=== PATIENT | male | born 1975 | race African-American/Black ===

== ENCOUNTER 2017-03-17 10:14 | Inpatient (IN) | payer OTHER ==
[2017-03-17 10:31] VITALS: BMI 32.1
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
[2017-03-17] MEDS ORDERED: IBUPROFEN 400 MG TABLET (FP) PO PRN (10:44)
[2017-03-17] MEDS ORDERED: LOPERAMIDE HCL 2 MG CAPSULE PO PRN (10:44)
[2017-03-17] MEDS ORDERED: P-EPHED 60MG/TRIPROLIDI 2.5MG TABLET PO PRN (10:44)
[2017-03-17] MEDS ORDERED: MAG HYDROX/AL HYDROX/SIMETH 30 ML UNIT-DOSE CUP PO PRN (10:44)
[2017-03-17] MEDS ORDERED: MAGNESIUM HYDROX 2400MG/30ML ORAL SUSPENSION 30 ML CUP PO PRN (10:44)
[2017-03-17] MEDS ORDERED: guaiFENesin/D-METHORPHAN HB 10 ML UNIT-DOSE CUPS PO PRN (10:44)
[2017-03-17] MEDS ORDERED: chlordiazePOXIDE HCL 25 MG CAPSULE PO PRN (10:44)
[2017-03-17] MEDS ORDERED: hydrOXYzine PAMOATE 50 MG CAPSULE (FP) PO PRN (10:44)
[2017-03-17] MEDS ORDERED: MAGNESIUM CITRATE 300 ML BOTTLE PO PRN (10:44)
[2017-03-17] MEDS ORDERED: MENTHOL/PHENOL 1 EACH UD MM PRN (10:44)
[2017-03-17] MEDS ORDERED: ACETAMINOPHEN 325 MG TABLET (FP) PO PRN (10:44)
[2017-03-17] MEDS ORDERED: chlordiazePOXIDE HCL 25 MG CAPSULE PO ONE (12:45)
[2017-03-17 17:17] LABS: URINE APPEARANCE CLEAR; URINE BILIRUBIN NEGATIVE (NEGATIVE); URINE BLOOD NEGATIVE (NEGATIVE); URINE COLOR LTYELLOW; URINE GLUCOSE (UA) NEGATIVE (NEGATIVE); URINE KETONE NEGATIVE (NEGATIVE); URINE LEUK ESTERASE NEGATIVE (NEGATIVE); URINE NITRITE NEGATIVE (NEGATIVE); URINE PROTEIN NEGATIVE (NEGATIVE); URINE UROBILINOGEN NEGATIVE mg/dL (0.2-1.0)
[2017-03-17] MEDS: chlordiazePOXIDE HCL 25 MG CAPSULE PO SCH ×2 (17:48→22:07)
[2017-03-17] MEDS ORDERED: diphenhydrAMINE HCL 50 MG CAPSULE PO PRN (22:00)
[2017-03-17] MEDS: THIAMINE HCL 100 MG TABLET (FP) PO SCH (22:06)
[2017-03-18] MEDS: chlordiazePOXIDE HCL 25 MG CAPSULE PO SCH ×4 (06:04→22:03)
[2017-03-18] MEDS: NICOTINE POLACRILEX 4 MG GUM BUC PRN ×2 (06:05→17:30)
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
--- NOTE | 2017-03-18 08:46 | EKG ---
Test Reason : Blood Pressure : / mmHG Vent. Rate : 085 BPM Atrial Rate : 085 BPM P-R Int : 146 ms QRS Dur : 082 ms QT Int : 344 ms P-R-T Axes : 066 074 045 degrees QTc Int : 409 ms NORMAL SINUS RHYTHM NORMAL ECG NO PREVIOUS ECGS AVAILABLE Confirmed by MD EL, GABRIEL ([id number]) on 03/18/2017 8:45:56 AM Referred By: Confirmed By:GABRIEL GALLEGOS MD
[2017-03-18] MEDS ORDERED: PRENATAL VITAMINS W/ FOLIC ACID TABLET (FP) PO SCH (10:00)
[2017-03-18 10:20] LABS: MCH 32.6 pg (25.7-33.7); MCHC 32.9 g/dl (32.0-35.9); MEAN CELL VOLUME 99.1 fl (80-96); MEAN PLT VOLUME 8.2 fl (7.5-11.1); PLATELET COUNT 205 K/MM3 (134-434); RDW 14.3 % (11.9-15.9); WHITE BLOOD COUNT 6.2 K/mm3 (4.0-10.0)
[2017-03-18 10:39] LABS: ALBUMIN 3.7 g/dl (3.4-5.0); ANION GAP 7 (8-16); BILIRUBIN,TOTAL 0.4 mg/dL (0.2-1.0); CALCIUM 8.4 mg/dL (8.5-10.1); CO2 27 mmol/L (21-32); CREATININE 1.1 mg/dL (0.7-1.3); GLUCOSE,RANDOM 69 mg/dL (74-106); SGOT/AST 21 U/L (15-37); SGPT/ALT 39 U/L (12-78)
[2017-03-18 10:40] LABS: ALK PHOS 88 U/L (45-117)
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
[2017-03-18] MEDS: THIAMINE HCL 100 MG TABLET (FP) PO SCH (22:03)
[2017-03-19] MEDS: chlordiazePOXIDE HCL 25 MG CAPSULE PO SCH (05:29)
[2017-03-19] MEDS: NICOTINE POLACRILEX 4 MG GUM BUC PRN (05:30)
[2017-03-19 09:16] VITALS: BP 137/83; PULSE 91; TEMP 97
[2017-03-19] MEDS ORDERED: chlordiazePOXIDE 5 MG CAPSULE PO SCH (17:00)
[2017-03-20] MEDS ORDERED: chlordiazePOXIDE HCL 10 MG CAPSULE PO SCH (17:00)
== END 2017-03-19 09:00 | disposition left against medical advice (07) | DRG 770 ==
LOC: YASAS 10:14 → Y3N 12:16
PROVIDERS: ADMIT Internal Medicine; ATTEND Internal Medicine
PROC: HZ2ZZZZ Detoxification Services for Substance Abuse Treatment (ICD-10-PCS; principal; 2017-03-17)
DX: F10.230 Alcohol dependence with withdrawal, uncomplicated (principal); F14.20 Cocaine dependence, uncomplicated; F17.210 Nicotine dependence, cigarettes, uncomplicated; F20.9 Schizophrenia, unspecified; E66.9 Obesity, unspecified; Z68.32 Body mass index [BMI] 32.0-32.9, adult; M21.831 Other specified acquired deformities of right forearm; G83.9 Paralytic syndrome, unspecified
CPT/HCPCS: 36415; 80053; 81003; 85027; 86593; 93005; 93010

== ENCOUNTER 2021-06-26 11:26 | Inpatient (IN) | payer OTHER ==
[2021-06-26 12:31] VITALS: BMI 32.1
[2021-06-26] MEDS ORDERED: MAGNESIUM CITRATE 300 ML BOTTLE PO PRN (14:54)
[2021-06-26] MEDS ORDERED: NICOTINE 10 MG CARTRIDGE (INHALER) IH PRN (14:54)
[2021-06-26] MEDS ORDERED: chlordiazePOXIDE HCL 25 MG CAPSULE PO PRN (14:54)
[2021-06-26] MEDS ORDERED: ACETAMINOPHEN 325 MG TABLET (FP) PO PRN ×2 (14:54)
[2021-06-26] MEDS ORDERED: ONDANSETRON *ODT* 4 MG TABLET SL PRN (14:54)
[2021-06-26] MEDS ORDERED: MAGNESIUM HYDROX 2400MG/30ML ORAL SUSPENSION 30 ML CUP PO PRN (14:54)
[2021-06-26] MEDS ORDERED: METHOCARBAMOL 500 MG TABLET PO PRN (14:54)
[2021-06-26] MEDS ORDERED: BISMUTH SUBSALICYLATE 524 MG/30 ML PO PRN (14:54)
[2021-06-26] MEDS ORDERED: MENTHOL/PHENOL 1 EACH UD MM PRN (14:54)
[2021-06-26] MEDS ORDERED: MAG HYDROX/AL HYDROX/SIMETH 30 ML UNIT-DOSE CUP PO PRN (14:54)
[2021-06-26] MEDS: chlordiazePOXIDE HCL 25 MG CAPSULE PO SCH ×2 (17:37→22:33)
[2021-06-26] MEDS: hydrOXYzine PAMOATE 25 MG CAPSULE (FP) PO SCH ×2 (17:38→22:34)
[2021-06-26] MEDS: MELATONIN 5 MG TABLETS PO SCH (22:34)
[2021-06-26] MEDS: THIAMINE HCL 100 MG TABLET (FP) PO SCH (22:34)
[2021-06-27] MEDS: hydrOXYzine PAMOATE 25 MG CAPSULE (FP) PO SCH ×5 (05:28→22:53)
[2021-06-27] MEDS: chlordiazePOXIDE HCL 25 MG CAPSULE PO SCH ×4 (05:40→22:53)
[2021-06-27] MEDS: PRENATAL VITAMINS W/ FOLIC ACID TABLET (FP) PO SCH (10:18)
[2021-06-27 12:26] LABS: HEMATOCRIT 43.6 % (35.4-49); HEMOGLOBIN 14.2 GM/dL (11.7-16.9); MCH 31.8 pg (25.7-33.7); MCHC 32.7 g/dl (32.0-35.9); MEAN CELL VOLUME 97.4 fl (80-96); MEAN PLT VOLUME 8.2 fl (7.5-11.1); PLATELET COUNT 238 10^3/uL (134-434); RBC 4.47 M/mm3 (4.00-5.60); WHITE BLOOD COUNT 6.5 K/mm3 (4.0-10.0)
[2021-06-27 12:52] LABS: ALBUMIN 3.2 g/dl (3.4-5.0); BLOOD UREA NITROGEN 13.5 mg/dL (7-18); CALCIUM 8.7 mg/dL (8.5-10.1)
[2021-06-27 12:54] LABS: CREATININE 1.2 mg/dL (0.55-1.3)
[2021-06-27 12:55] LABS: BILIRUBIN,TOTAL 0.7 mg/dL (0.2-1); TOT PROT 6.4 g/dl (6.4-8.2)
[2021-06-27 13:26] LABS: HIV INTERPRETATION NEGATIVE (NEGATIVE)
[2021-06-27] MEDS: MELATONIN 5 MG TABLETS PO SCH (22:53)
[2021-06-27] MEDS: THIAMINE HCL 100 MG TABLET (FP) PO SCH (22:53)
[2021-06-28] MEDS: hydrOXYzine PAMOATE 25 MG CAPSULE (FP) PO SCH ×5 (06:16→22:48)
[2021-06-28] MEDS: chlordiazePOXIDE HCL 25 MG CAPSULE PO SCH ×4 (06:17→23:51)
[2021-06-28] MEDS: PRENATAL VITAMINS W/ FOLIC ACID TABLET (FP) PO SCH (10:42)
[2021-06-28] MEDS: IBUPROFEN 400 MG TABLET (FP) PO PRN (12:33)
[2021-06-28] MEDS: MELATONIN 5 MG TABLETS PO SCH (22:48)
[2021-06-28] MEDS: THIAMINE HCL 100 MG TABLET (FP) PO SCH (22:48)
[2021-06-29] MEDS ORDERED: chlordiazePOXIDE HCL 10 MG CAPSULE PO PRN
[2021-06-29] MEDS: hydrOXYzine PAMOATE 25 MG CAPSULE (FP) PO SCH ×5 (06:05→22:32)
[2021-06-29] MEDS: chlordiazePOXIDE HCL 10 MG CAPSULE PO SCH ×4 (06:07→22:33)
[2021-06-29] MEDS: PRENATAL VITAMINS W/ FOLIC ACID TABLET (FP) PO SCH (11:03)
[2021-06-29] MEDS: MELATONIN 5 MG TABLETS PO SCH (22:32)
[2021-06-29] MEDS: IBUPROFEN 400 MG TABLET (FP) PO PRN (22:36)
[2021-06-29] MEDS: THIAMINE HCL 100 MG TABLET (FP) PO SCH (22:36)
[2021-06-30] MEDS: hydrOXYzine PAMOATE 25 MG CAPSULE (FP) PO SCH ×5 (06:24→22:37)
[2021-06-30] MEDS: chlordiazePOXIDE HCL 10 MG CAPSULE PO SCH ×2 (06:24→18:31)
[2021-06-30] MEDS: PRENATAL VITAMINS W/ FOLIC ACID TABLET (FP) PO SCH (10:46)
[2021-06-30] MEDS: MELATONIN 5 MG TABLETS PO SCH (22:37)
[2021-06-30] MEDS: THIAMINE HCL 100 MG TABLET (FP) PO SCH (22:37)
[2021-07-01] MEDS ORDERED: chlordiazePOXIDE HCL 10 MG CAPSULE PO ONE (05:00)
[2021-07-01] MEDS: hydrOXYzine PAMOATE 25 MG CAPSULE (FP) PO SCH ×5 (06:34→22:35)
[2021-07-01] MEDS: PRENATAL VITAMINS W/ FOLIC ACID TABLET (FP) PO SCH (11:49)
[2021-07-01] MEDS: THIAMINE HCL 100 MG TABLET (FP) PO SCH (22:35)
[2021-07-01] MEDS: MELATONIN 5 MG TABLETS PO SCH (22:36)
[2021-07-02] MEDS: hydrOXYzine PAMOATE 25 MG CAPSULE (FP) PO SCH (05:44)
[2021-07-02 09:26] VITALS: BP 132/73; PULSE 64; TEMP 97.3
== END 2021-07-02 09:56 | disposition home or self-care (01) | DRG 774 ==
LOC: YASAS 11:26 → Y3N 14:54
PROVIDERS: ADMIT Allergy & Immunology; ATTEND Allergy & Immunology
PROC: HZ2ZZZZ Detoxification Services for Substance Abuse Treatment (ICD-10-PCS; principal; 2021-06-26)
DX: F10.230 Alcohol dependence with withdrawal, uncomplicated (principal); F14.20 Cocaine dependence, uncomplicated; F17.210 Nicotine dependence, cigarettes, uncomplicated; F20.9 Schizophrenia, unspecified; M21.331 Wrist drop, right wrist; Z20.822 Contact with and (suspected) exposure to COVID-19; Z91.011 Allergy to milk products; Z91.018 Allergy to other foods
CPT/HCPCS: 36415; 80053; 85027; 86780; 87389; C9803; Q0162; U0003; U0005

== ENCOUNTER 2021-09-02 18:54 | Inpatient (IN) | payer OTHER ==
[2021-09-02 20:25] VITALS: BMI 35.4
[2021-09-02] MEDS ORDERED: chlordiazePOXIDE HCL 25 MG CAPSULE PO PRN (22:50)
[2021-09-02] MEDS ORDERED: NICOTINE 10 MG CARTRIDGE (INHALER) IH PRN (22:51)
[2021-09-02] MEDS ORDERED: MAG HYDROX/AL HYDROX/SIMETH 30 ML UNIT-DOSE CUP PO PRN (22:51)
[2021-09-02] MEDS ORDERED: hydrOXYzine PAMOATE 25 MG CAPSULE (FP) PO PRN (22:51)
[2021-09-02] MEDS ORDERED: MAGNESIUM HYDROX 2400MG/30ML ORAL SUSPENSION 30 ML CUP PO PRN (22:51)
[2021-09-02] MEDS ORDERED: BISMUTH SUBSALICYLATE 524 MG/30 ML PO PRN (22:51)
[2021-09-02] MEDS ORDERED: ONDANSETRON *ODT* 4 MG TABLET SL PRN (22:51)
[2021-09-02] MEDS ORDERED: MENTHOL/PHENOL 1 EACH UD MM PRN (22:51)
[2021-09-02] MEDS ORDERED: LOPERAMIDE HCL 2 MG CAPSULE PO PRN (22:51)
[2021-09-02] MEDS ORDERED: IBUPROFEN 400 MG TABLET (FP) PO PRN (22:51)
[2021-09-02] MEDS ORDERED: ACETAMINOPHEN 325 MG TABLET (FP) PO PRN ×2 (22:51)
[2021-09-02] MEDS ORDERED: MAGNESIUM CITRATE 300 ML BOTTLE PO PRN (22:51)
[2021-09-02] MEDS: chlordiazePOXIDE HCL 25 MG CAPSULE PO SCH (23:23)
[2021-09-03] MEDS: chlordiazePOXIDE HCL 25 MG CAPSULE PO SCH ×4 (05:19→22:59)
[2021-09-03] MEDS: PRENATAL VITAMINS W/ FOLIC ACID TABLET (FP) PO SCH (11:29)
[2021-09-03] MEDS: METHOCARBAMOL 500 MG TABLET PO PRN (11:30)
[2021-09-03 11:42] LABS: HEMATOCRIT 42.8 % (35.4-49); HEMOGLOBIN 14.6 GM/dL (11.7-16.9); MCH 32.8 pg (25.7-33.7); MEAN CELL VOLUME 96.6 fl (80-96); MEAN PLT VOLUME 7.8 fl (7.5-11.1); PLATELET COUNT 210 10^3/uL (134-434); RBC 4.43 M/mm3 (4.00-5.60); RDW 14.5 % (11.9-15.9); WHITE BLOOD COUNT 5.6 K/mm3 (4.0-10.0)
[2021-09-03 11:44] LABS: CALCIUM 8.7 mg/dL (8.5-10.1)
[2021-09-03 11:45] LABS: ALBUMIN 3.5 g/dl (3.4-5.0); BLOOD UREA NITROGEN 14.7 mg/dL (7-18)
[2021-09-03 11:48] LABS: CREATININE 1.1 mg/dL (0.55-1.3)
[2021-09-03 11:49] LABS: BILIRUBIN,TOTAL 0.7 mg/dL (0.2-1)
[2021-09-03 11:50] LABS: TOT PROT 6.6 g/dl (6.4-8.2)
[2021-09-03] MEDS: MELATONIN 5 MG TABLETS PO SCH (22:59)
[2021-09-03] MEDS: THIAMINE HCL 100 MG TABLET (FP) PO SCH (23:00)
[2021-09-04] MEDS ORDERED: chlordiazePOXIDE HCL 25 MG CAPSULE PO SCH (05:00)
[2021-09-04] MEDS: chlordiazePOXIDE HCL 10 MG CAPSULE PO SCH ×4 (05:59→23:09)
[2021-09-04] MEDS: METHOCARBAMOL 500 MG TABLET PO PRN (10:36)
[2021-09-04] MEDS: PRENATAL VITAMINS W/ FOLIC ACID TABLET (FP) PO SCH (10:36)
[2021-09-04] MEDS: THIAMINE HCL 100 MG TABLET (FP) PO SCH (23:09)
[2021-09-04] MEDS: MELATONIN 5 MG TABLETS PO SCH (23:09)
[2021-09-05] MEDS ORDERED: chlordiazePOXIDE HCL 10 MG CAPSULE PO PRN
[2021-09-05] MEDS ORDERED: chlordiazePOXIDE 5 MG CAPSULE PO PRN (04:12)
[2021-09-05] MEDS: chlordiazePOXIDE 5 MG CAPSULE PO SCH ×2 (06:14→10:38)
[2021-09-05 09:57] VITALS: BP 116/72; PULSE 96; TEMP 97.3
[2021-09-05] MEDS: PRENATAL VITAMINS W/ FOLIC ACID TABLET (FP) PO SCH (10:37)
[2021-09-05 14:08] LABS: SARS-CoV-2 NAA Not Detected (Not Detected)
[2021-09-06] MEDS ORDERED: chlordiazePOXIDE 5 MG CAPSULE PO SCH (05:00)
[2021-09-07] MEDS ORDERED: chlordiazePOXIDE HCL 10 MG CAPSULE PO ONE (05:00)
== END 2021-09-05 11:03 | disposition home or self-care (01) | DRG 775 ==
LOC: YASAS 18:54 → Y6N 22:47
PROVIDERS: ADMIT Allergy & Immunology; ATTEND Allergy & Immunology
PROC: HZ2ZZZZ Detoxification Services for Substance Abuse Treatment (ICD-10-PCS; principal; 2021-09-02)
DX: F10.230 Alcohol dependence with withdrawal, uncomplicated (principal); F17.213 Nicotine dependence, cigarettes, with withdrawal; F20.9 Schizophrenia, unspecified; E11.9 Type 2 diabetes mellitus without complications; I83.93 Asymptomatic varicose veins of bilateral lower extremities; M21.331 Wrist drop, right wrist; G83.21 Monoplegia of upper limb affecting right dominant side; E66.9 Obesity, unspecified; Z68.35 Body mass index [BMI] 35.0-35.9, adult; Z91.011 Allergy to milk products; Z91.018 Allergy to other foods
CPT/HCPCS: 36415; 80053; 85027; 86780; 87811; C9803; U0003; U0005

== ENCOUNTER 2021-10-04 17:11 | Inpatient (IN) | payer OTHER ==
[2021-10-04 17:49] VITALS: BMI 35.4
[2021-10-04] MEDS ORDERED: BENZOCAINE/MENTHOL (CHLORASEPTIC ) LOZENGE MM PRN (19:03)
[2021-10-04] MEDS ORDERED: ACETAMINOPHEN 325 MG TABLET (FP) PO PRN (19:03)
[2021-10-04] MEDS ORDERED: DICYCLOMINE HCL 10 MG CAPSULE PO PRN (19:03)
[2021-10-04] MEDS ORDERED: MAGNESIUM CITRATE 300 ML BOTTLE PO PRN (19:03)
[2021-10-04] MEDS ORDERED: ONDANSETRON *ODT* 4 MG TABLET SL PRN (19:03)
[2021-10-04] MEDS ORDERED: LOPERAMIDE HCL 2 MG CAPSULE PO PRN (19:03)
[2021-10-04] MEDS ORDERED: MAGNESIUM HYDROX 2400MG/30ML ORAL SUSPENSION 30 ML CUP PO PRN (19:03)
[2021-10-04] MEDS ORDERED: BISMUTH SUBSALICYLATE 524 MG/30 ML PO PRN (19:03)
[2021-10-04] MEDS ORDERED: MAG HYDROX/AL HYDROX/SIMETH 30 ML UNIT-DOSE CUP PO PRN (19:03)
[2021-10-04] MEDS ORDERED: diazePAM 5 MG TABLET PO PRN (19:05)
[2021-10-04] MEDS: IBUPROFEN 400 MG TABLET (FP) PO PRN (20:58)
[2021-10-04] MEDS: MELATONIN 5 MG TABLETS PO PRN (22:30)
[2021-10-04] MEDS: THIAMINE HCL 100 MG TABLET (FP) PO SCH (22:30)
[2021-10-04] MEDS: hydrOXYzine PAMOATE 25 MG CAPSULE (FP) PO PRN (22:30)
[2021-10-04] MEDS: diazePAM 5 MG TABLET PO SCH (22:31)
[2021-10-04] MEDS: ACETAMINOPHEN 325 MG TABLET (FP) PO PRN (22:32)
[2021-10-04] MEDS: METHOCARBAMOL 500 MG TABLET PO PRN (22:33)
[2021-10-05] MEDS: NICOTINE POLACRILEX 2 MG GUM BUC PRN ×2 (06:46→10:39)
[2021-10-05] MEDS: diazePAM 5 MG TABLET PO SCH ×4 (06:46→22:56)
[2021-10-05] MEDS: IBUPROFEN 400 MG TABLET (FP) PO PRN ×2 (06:47→18:18)
[2021-10-05] MEDS: PRENATAL VITAMINS W/ FOLIC ACID TABLET (FP) PO SCH (10:35)
[2021-10-05] MEDS: ACETAMINOPHEN 325 MG TABLET (FP) PO PRN (10:37)
[2021-10-05 10:54] LABS: HEMATOCRIT 41.6 % (35.4-49); HEMOGLOBIN 13.9 GM/dL (11.7-16.9); MCH 32.3 pg (25.7-33.7); MCHC 33.3 g/dl (32.0-35.9); MEAN CELL VOLUME 96.9 fl (80-96); MEAN PLT VOLUME 8.4 fl (7.5-11.1); PLATELET COUNT 213 10^3/uL (134-434); RBC 4.29 M/mm3 (4.00-5.60); RDW 13.9 % (11.9-15.9); WHITE BLOOD COUNT 5.4 K/mm3 (4.0-10.0)
[2021-10-05 10:56] LABS: CALCIUM 8.7 mg/dL (8.5-10.1)
[2021-10-05 10:57] LABS: ALBUMIN 3.2 g/dl (3.4-5.0); BLOOD UREA NITROGEN 11.9 mg/dL (7-18)
[2021-10-05 11:00] LABS: CREATININE 1.2 mg/dL (0.55-1.3)
[2021-10-05 11:01] LABS: TOT PROT 6.4 g/dl (6.4-8.2)
[2021-10-05 11:02] LABS: BILIRUBIN,TOTAL 0.9 mg/dL (0.2-1)
[2021-10-05] MEDS: hydrOXYzine PAMOATE 25 MG CAPSULE (FP) PO PRN (18:16)
[2021-10-05] MEDS: THIAMINE HCL 100 MG TABLET (FP) PO SCH (22:55)
[2021-10-05] MEDS: MELATONIN 5 MG TABLETS PO PRN (22:55)
[2021-10-06] MEDS ORDERED: diazePAM 5 MG TABLET PO SCH (06:00)
[2021-10-06] MEDS: IBUPROFEN 400 MG TABLET (FP) PO PRN (06:16)
[2021-10-06] MEDS: NICOTINE POLACRILEX 2 MG GUM BUC PRN (06:18)
[2021-10-06 09:34] VITALS: BP 156/71; PULSE 86; TEMP 97.8
[2021-10-06] MEDS: PRENATAL VITAMINS W/ FOLIC ACID TABLET (FP) PO SCH (10:12)
[2021-10-06] MEDS: METHOCARBAMOL 500 MG TABLET PO PRN (10:12)
[2021-10-06] MEDS: ACETAMINOPHEN 325 MG TABLET (FP) PO PRN (10:14)
[2021-10-06 12:09] LABS: SARS-CoV-2 NAA Not Detected (Not Detected)
[2021-10-07] MEDS ORDERED: diazePAM 5 MG TABLET PO ONE (06:00)
== END 2021-10-06 10:30 | disposition home or self-care (01) | DRG 775 ==
LOC: YASAS 17:11 → Y6N 19:35
PROVIDERS: ADMIT Allergy & Immunology; ATTEND Allergy & Immunology
PROC: HZ2ZZZZ Detoxification Services for Substance Abuse Treatment (ICD-10-PCS; principal; 2021-10-04)
DX: F10.230 Alcohol dependence with withdrawal, uncomplicated (principal); F17.210 Nicotine dependence, cigarettes, uncomplicated; F20.9 Schizophrenia, unspecified; E11.9 Type 2 diabetes mellitus without complications; E66.9 Obesity, unspecified; Z68.35 Body mass index [BMI] 35.0-35.9, adult; Z87.09 Personal history of other diseases of the respiratory system; Z91.011 Allergy to milk products; Z91.018 Allergy to other foods
CPT/HCPCS: 36415; 80053; 85027; 86780; C9803-CS; U0003; U0005

== ENCOUNTER 2022-05-25 14:23 | Inpatient (IN) | payer OTHER ==
[2022-05-25 17:07] VITALS: BMI 35.4
[2022-05-25] MEDS ORDERED: LOPERAMIDE HCL 2 MG CAPSULE PO PRN (17:38)
[2022-05-25] MEDS ORDERED: hydrOXYzine PAMOATE 25 MG CAPSULE (FP) PO PRN (17:38)
[2022-05-25] MEDS ORDERED: NICOTINE POLACRILEX 2 MG GUM BUC PRN (17:38)
[2022-05-25] MEDS ORDERED: NALOXONE HCL (KLOXXADO) 8 MG SPRAY NS PRN (17:38)
[2022-05-25] MEDS ORDERED: IBUPROFEN 600 MG TABLET (FP) PO PRN (17:38)
[2022-05-25] MEDS ORDERED: ACETAMINOPHEN 325 MG TABLET (FP) PO PRN ×2 (17:38)
[2022-05-25] MEDS ORDERED: ONDANSETRON *ODT* 4 MG TABLET SL PRN (17:38)
[2022-05-25] MEDS ORDERED: BENZOCAINE/MENTHOL (CHLORASEPTIC ) LOZENGE MM PRN (17:38)
[2022-05-25] MEDS ORDERED: NICOTINE 10 MG CARTRIDGE (INHALER) IH PRN (17:38)
[2022-05-25] MEDS ORDERED: IBUPROFEN 400 MG TABLET (FP) PO PRN (17:38)
[2022-05-25] MEDS ORDERED: MAGNESIUM HYDROX 2400MG/30ML ORAL SUSPENSION 30 ML CUP PO PRN (17:38)
[2022-05-25] MEDS ORDERED: METHOCARBAMOL 500 MG TABLET PO PRN (17:38)
[2022-05-25] MEDS ORDERED: POLYETHYLENE GLYCOL (HEALTHYLAX) 3350 17 GM PACKET PO PRN (17:38)
[2022-05-25] MEDS ORDERED: MAG HYDROX/AL HYDROX/SIMETH 30 ML UNIT-DOSE CUP PO PRN (17:38)
[2022-05-25] MEDS ORDERED: BISMUTH SUBSALICYLATE 524 MG/30 ML PO PRN (17:38)
[2022-05-25] MEDS ORDERED: DICYCLOMINE HCL 10 MG CAPSULE PO PRN (17:38)
[2022-05-25] MEDS: THIAMINE HCL 100 MG TABLET (FP) PO SCH (21:34)
[2022-05-25] MEDS: MELATONIN 5 MG TABLETS PO SCH (21:34)
[2022-05-25] MEDS: PRENATAL VITAMINS W/ FOLIC ACID TABLET (FP) PO SCH (22:39)
[2022-05-26] MEDS: PRENATAL VITAMINS W/ FOLIC ACID TABLET (FP) PO SCH (10:36)
[2022-05-26 10:49] LABS: HEMATOCRIT 40.4 % (35.4-49); HEMOGLOBIN 13.6 GM/dL (11.7-16.9); MCH 32.9 pg (25.7-33.7); MCHC 33.7 g/dl (32.0-35.9); MEAN CELL VOLUME 97.7 fl (80-96); MEAN PLT VOLUME 8.2 fl (7.5-11.1); PLATELET COUNT 198 10^3/uL (134-434); RBC 4.14 M/mm3 (4.00-5.60); RDW 14.6 % (11.9-15.9); WHITE BLOOD COUNT 5.3 K/mm3 (4.0-10.0)
[2022-05-26 11:12] LABS: CALCIUM 8.4 mg/dL (8.5-10.1)
[2022-05-26 11:13] LABS: ALBUMIN 3.4 g/dl (3.4-5.0); BLOOD UREA NITROGEN 16.2 mg/dL (7-18)
[2022-05-26 11:15] LABS: CREATININE 1.3 mg/dL (0.55-1.3)
[2022-05-26 11:16] LABS: BILIRUBIN,TOTAL 0.8 mg/dL (0.2-1); TOT PROT 6.5 g/dl (6.4-8.2)
[2022-05-26] MEDS: MELATONIN 5 MG TABLETS PO SCH (21:40)
[2022-05-26] MEDS: THIAMINE HCL 100 MG TABLET (FP) PO SCH (21:41)
[2022-05-27] MEDS: PRENATAL VITAMINS W/ FOLIC ACID TABLET (FP) PO SCH (09:31)
[2022-05-27 09:56] VITALS: BP 127/78; PULSE 81; RESP 19; TEMP 97.9
== END 2022-05-27 09:47 | disposition home or self-care (01) | DRG 774 ==
LOC: YASAS 14:23 → Y3N 20:40
PROVIDERS: ADMIT Allergy & Immunology; ATTEND Family Medicine Addiction Medicine
PROC: HZ2ZZZZ Detoxification Services for Substance Abuse Treatment (ICD-10-PCS; principal; 2022-05-25)
DX: F10.230 Alcohol dependence with withdrawal, uncomplicated (principal); F14.20 Cocaine dependence, uncomplicated; F17.210 Nicotine dependence, cigarettes, uncomplicated; F20.9 Schizophrenia, unspecified; E11.9 Type 2 diabetes mellitus without complications; Z87.09 Personal history of other diseases of the respiratory system; Z91.011 Allergy to milk products; Z91.018 Allergy to other foods
CPT/HCPCS: 36415; 80053; 82962; 85027; 86780; 87811; C9803-CS; U0003; U0005

== ENCOUNTER 2023-11-01 13:54 | Inpatient (IN) | payer OTHER ==
[2023-11-01 14:22] VITALS: BMI 32.5
[2023-11-01] MEDS ORDERED: hydrOXYzine PAMOATE 25 MG CAPSULE (FP) PO PRN (14:49)
[2023-11-01] MEDS ORDERED: MAGNESIUM HYDROX 2400MG/30ML ORAL SUSPENSION 30 ML CUP PO PRN (14:49)
[2023-11-01] MEDS ORDERED: NALOXONE HCL (KLOXXADO) 8 MG SPRAY NS PRN (14:49)
[2023-11-01] MEDS ORDERED: IBUPROFEN 400 MG TABLET (FP) PO PRN (14:49)
[2023-11-01] MEDS ORDERED: guaiFENesin 600 MG TABLET.ER (FP) PO PRN (14:49)
[2023-11-01] MEDS ORDERED: LORazepam 1 MG TABLET PO PRN (14:49)
[2023-11-01] MEDS ORDERED: IBUPROFEN 600 MG TABLET (FP) PO PRN (14:49)
[2023-11-01] MEDS ORDERED: LOPERAMIDE HCL 2 MG CAPSULE PO PRN (14:49)
[2023-11-01] MEDS ORDERED: POLYETHYLENE GLYCOL (HEALTHYLAX) 3350 17 GM PACKET PO PRN (14:49)
[2023-11-01] MEDS ORDERED: ACETAMINOPHEN 325 MG TABLET (FP) PO PRN (14:49)
[2023-11-01] MEDS ORDERED: ONDANSETRON *ODT* 4 MG TABLET SL PRN (14:49)
[2023-11-01] MEDS ORDERED: DICYCLOMINE HCL 10 MG CAPSULE PO PRN (14:49)
[2023-11-01] MEDS ORDERED: BISMUTH SUBSALICYLATE 262 MG/15 ML BTL PO PRN (14:49)
[2023-11-01] MEDS ORDERED: MAG HYDROX/AL HYDROX/SIMETH 30 ML UNIT-DOSE CUP PO PRN (14:49)
[2023-11-01] MEDS ORDERED: BENZOCAINE/MENTHOL (CHLORASEPTIC ) LOZENGE MM PRN (14:49)
[2023-11-01] MEDS ORDERED: BENZONATATE 200 MG CAPSULE PO PRN (14:49)
[2023-11-01] MEDS ORDERED: NALOXONE HCL 0.4 MG/ML VIAL IM PRN (14:49)
[2023-11-01] MEDS: PRENATAL VITAMINS W/ FOLIC ACID TABLET (FP) PO SCH (16:05)
[2023-11-01] MEDS: LORazepam 2 MG TABLET PO SCH (17:42)
[2023-11-01] MEDS: THIAMINE 100 MG TABLET PO SCH (22:41)
[2023-11-01] MEDS: MELATONIN 5 MG TABLETS PO SCH (22:43)
[2023-11-02] MEDS: risperiDONE 1 MG TABLET PO SCH (10:15)
[2023-11-02] MEDS: METHOCARBAMOL 500 MG TABLET PO PRN (10:17)
[2023-11-02 12:23] LABS: HEMATOCRIT 40.3 % (35.4-49); HEMOGLOBIN 13.4 GM/dL (11.7-16.9); MCH 31.5 pg (25.7-33.7); MCHC 33.3 g/dl (32.0-35.9); MEAN CELL VOLUME 94.6 fl (80-96); PLATELET COUNT 250 10^3/uL (134-434); RBC 4.26 M/mm3 (4.00-5.60); RDW 16.7 % (11.9-15.9)
[2023-11-02 12:52] LABS: CHLORIDE 110 mmol/L (98-107); POTASSIUM 4.5 mmol/L (3.5-5.1); SODIUM 140 mmol/L (136-145)
[2023-11-02 13:03] LABS: ALBUMIN 3.3 g/dl (3.4-5.0); ANION GAP 6 mmol/L (4-13); BLOOD UREA NITROGEN 12.6 mg/dL (7-18); CALCIUM 8.7 mg/dL (8.5-10.1); CO2 24 mmol/L (21-32); GLUCOSE,RANDOM 86 mg/dL (74-106)
[2023-11-02 13:06] LABS: SGPT/ALT 43 U/L (13-61)
[2023-11-02 13:07] LABS: BILIRUBIN,TOTAL 0.5 mg/dL (0.2-1); CREATININE 0.9 mg/dL (0.55-1.3); SGOT/AST 29 U/L (15-37)
[2023-11-02 13:09] LABS: ALK PHOS 81 U/L (45-117)
[2023-11-02] MEDS ORDERED: LACTULOSE 20 GM/30 ML UDC (FOR ORAL USE ONLY) PO SCH (18:00)
[2023-11-02] MEDS: RIFAXIMIN 550 MG TABLET PO SCH (22:22)
[2023-11-03] MEDS: LORazepam 1 MG TABLET PO SCH (06:23)
[2023-11-03] MEDS ORDERED: LORATADINE 10 MG TABLET PO PRN (09:50)
[2023-11-04] MEDS ORDERED: LORazepam 0.5 MG TABLET PO PRN
[2023-11-04] MEDS: LORazepam 0.5 MG TABLET PO SCH (06:20)
[2023-11-04] MEDS: LACTULOSE 20 GM/30 ML UDC (FOR ORAL USE ONLY) PO SCH (10:15)
[2023-11-05] MEDS: LORazepam 0.5 MG TABLET PO ONE (06:00)
[2023-11-05 08:52] VITALS: BP 116/74; PULSE 85; RESP 18; TEMP 97.3
== END 2023-11-05 08:44 | disposition home or self-care (01) | DRG 774 ==
LOC: YASAS 13:54 → Y6N 14:50
PROVIDERS: ADMIT Allergy & Immunology; ATTEND Surgery
PROC: HZ2ZZZZ Detoxification Services for Substance Abuse Treatment (ICD-10-PCS; principal; 2023-11-01)
DX: F10.230 Alcohol dependence with withdrawal, uncomplicated (principal); F14.20 Cocaine dependence, uncomplicated; F17.210 Nicotine dependence, cigarettes, uncomplicated; F20.9 Schizophrenia, unspecified; F90.9 Attention-deficit hyperactivity disorder, unspecified type; F19.982 Other psychoactive substance use, unspecified with psychoactive substance-induced sleep disorder; E11.9 Type 2 diabetes mellitus without complications; E72.20 Disorder of urea cycle metabolism, unspecified; Z79.84 Long term (current) use of oral hypoglycemic drugs; Z91.011 Allergy to milk products; Z62.810 Personal history of physical and sexual abuse in childhood; Z56.0 Unemployment, unspecified
CPT/HCPCS: 36415; 80053; 80305; 80307; 82140; 82962; 85027; 86780; 93005; 93010

== ENCOUNTER 2024-01-28 19:27 | Inpatient (IN) | payer OTHER ==
[2024-01-28 20:35] VITALS: BMI 32.5
[2024-01-28] MEDS ORDERED: MAGNESIUM HYDROX 2400MG/30ML ORAL SUSPENSION 30 ML CUP PO PRN (21:54)
[2024-01-28] MEDS ORDERED: IBUPROFEN 600 MG TABLET (FP) PO PRN (21:54)
[2024-01-28] MEDS ORDERED: BENZONATATE 200 MG CAPSULE PO PRN (21:54)
[2024-01-28] MEDS ORDERED: POLYETHYLENE GLYCOL (HEALTHYLAX) 3350 17 GM PACKET PO PRN (21:54)
[2024-01-28] MEDS ORDERED: BENZOCAINE/MENTHOL (CHLORASEPTIC ) LOZENGE MM PRN (21:54)
[2024-01-28] MEDS ORDERED: NALOXONE HCL 0.4 MG/ML VIAL IM PRN (21:54)
[2024-01-28] MEDS ORDERED: BISMUTH SUBSALICYLATE 524 MG/30 ML PO PRN (21:54)
[2024-01-28] MEDS ORDERED: guaiFENesin 600 MG TABLET.ER (FP) PO PRN (21:54)
[2024-01-28] MEDS ORDERED: NALOXONE (NARCAN) HCL 4 MG/0.1 ML SPRAY NS PRN (21:54)
[2024-01-28] MEDS ORDERED: ONDANSETRON *ODT* 4 MG TABLET SL PRN (21:54)
[2024-01-28] MEDS ORDERED: LOPERAMIDE HCL 2 MG CAPSULE PO PRN (21:54)
[2024-01-28] MEDS ORDERED: IBUPROFEN 400 MG TABLET (FP) PO PRN (21:54)
[2024-01-28] MEDS ORDERED: ACETAMINOPHEN 325 MG TABLET (FP) PO PRN (21:54)
[2024-01-28] MEDS ORDERED: DICYCLOMINE HCL 10 MG CAPSULE PO PRN (21:54)
[2024-01-28] MEDS ORDERED: MAG HYDROX/AL HYDROX/SIMETH 30 ML UNIT-DOSE CUP PO PRN (21:54)
[2024-01-28] MEDS ORDERED: MELATONIN 5 MG TABLETS ONE (22:30)
[2024-01-28] MEDS: MELATONIN 5 MG TABLETS PO SCH (22:32)
[2024-01-28] MEDS: THIAMINE 100 MG TABLET PO SCH (22:32)
[2024-01-29] MEDS: PRENATAL VITAMINS W/ FOLIC ACID TABLET (FP) PO SCH (09:08)
[2024-01-29] MEDS: NICOTINE 14 MG/24 HOURS TOPICAL PATCH TD SCH (09:08)
[2024-01-29 09:30] LABS: SODIUM 141 mmol/L (136-145)
[2024-01-29 09:31] LABS: CHLORIDE 110 mmol/L (98-107); HEMATOCRIT 39.2 % (35.4-49); HEMOGLOBIN 13.3 GM/dL (11.7-16.9); MCH 32.3 pg (25.7-33.7); MEAN CELL VOLUME 95.1 fl (80-96); MEAN PLT VOLUME 7.6 fl (7.5-11.1); PLATELET COUNT 251 10^3/uL (134-434); POTASSIUM 4.3 mmol/L (3.5-5.1); RBC 4.13 M/mm3 (4.00-5.60); RDW 15.8 % (11.9-15.9); WHITE BLOOD COUNT 6.7 K/mm3 (4.0-10.0)
[2024-01-29 09:44] LABS: SGPT/ALT 24 U/L (13-61)
[2024-01-29 09:52] LABS: ALBUMIN 3.4 g/dl (3.4-5.0)
[2024-01-29 09:53] LABS: ANION GAP 7 mmol/L (4-13); BLOOD UREA NITROGEN 12.2 mg/dL (7-18); CALCIUM 8.7 mg/dL (8.5-10.1); CO2 24 mmol/L (21-32); GLUCOSE,RANDOM 126 mg/dL (74-106)
[2024-01-29 09:56] LABS: CREATININE 1.1 mg/dL (0.55-1.3); SGOT/AST 18 U/L (15-37)
[2024-01-29 09:57] LABS: BILIRUBIN,TOTAL 0.5 mg/dL (0.2-1); TOT PROT 6.8 g/dl (6.4-8.2)
[2024-01-29 09:58] LABS: ALK PHOS 86 U/L (45-117)
[2024-01-29] MEDS ORDERED: LORazepam 1 MG TABLET PO PRN (12:18)
[2024-01-29] MEDS: LORazepam 2 MG TABLET PO SCH (17:36)
[2024-01-29] MEDS: NICOTINE POLACRILEX 2 MG GUM BUC PRN (17:37)
[2024-01-29] MEDS: hydrOXYzine PAMOATE 25 MG CAPSULE (FP) PO PRN (22:36)
[2024-01-29] MEDS: METHOCARBAMOL 500 MG TABLET PO PRN (22:36)
[2024-01-30] MEDS: LORazepam 1 MG TABLET PO SCH (05:32)
[2024-01-31] MEDS: LORazepam 0.5 MG TABLET PO SCH (05:56)
[2024-02-01] MEDS: LORazepam 0.5 MG TABLET PO ONE (05:25)
[2024-02-01 09:10] VITALS: BP 111/69; PULSE 75; RESP 16; TEMP 97
== END 2024-02-01 09:44 | disposition home or self-care (01) | DRG 774 ==
LOC: YASAS 19:27 → Y6N 22:01
PROVIDERS: ADMIT Allergy & Immunology; ATTEND Surgery
PROC: HZ2ZZZZ Detoxification Services for Substance Abuse Treatment (ICD-10-PCS; principal; 2024-01-28)
DX: F10.230 Alcohol dependence with withdrawal, uncomplicated (principal); F14.20 Cocaine dependence, uncomplicated; F15.20 Other stimulant dependence, uncomplicated; F17.210 Nicotine dependence, cigarettes, uncomplicated; F90.9 Attention-deficit hyperactivity disorder, unspecified type; F20.9 Schizophrenia, unspecified; J45.909 Unspecified asthma, uncomplicated; I83.90 Asymptomatic varicose veins of unspecified lower extremity; Z62.810 Personal history of physical and sexual abuse in childhood; Z56.0 Unemployment, unspecified
CPT/HCPCS: 36415; 80053; 80305; 80307; 82140; 83036; 85027; 86780; 93005; 93010

== ENCOUNTER 2024-05-10 12:04 | Inpatient (IN) | payer OTHER ==
[2024-05-10 12:27] VITALS: BMI 31.8
[2024-05-10] MEDS ORDERED: hydrOXYzine PAMOATE 25 MG CAPSULE (FP) PO PRN (17:07)
[2024-05-10] MEDS ORDERED: ONDANSETRON *ODT* 4 MG TABLET SL PRN (17:07)
[2024-05-10] MEDS ORDERED: BENZOCAINE/MENTHOL (CHLORASEPTIC ) LOZENGE MM PRN (17:07)
[2024-05-10] MEDS ORDERED: chlordiazePOXIDE HCL 25 MG CAPSULE PO PRN (17:07)
[2024-05-10] MEDS ORDERED: BISMUTH SUBSALICYLATE 524 MG/30 ML PO PRN (17:07)
[2024-05-10] MEDS ORDERED: MAGNESIUM HYDROX 2400MG/30ML ORAL SUSPENSION 30 ML CUP PO PRN (17:07)
[2024-05-10] MEDS ORDERED: METHOCARBAMOL 500 MG TABLET PO PRN (17:07)
[2024-05-10] MEDS ORDERED: MAG HYDROX/AL HYDROX/SIMETH 30 ML UNIT-DOSE CUP PO PRN (17:07)
[2024-05-10] MEDS ORDERED: POLYETHYLENE GLYCOL (HEALTHYLAX) 3350 17 GM PACKET PO PRN (17:07)
[2024-05-10] MEDS ORDERED: LOPERAMIDE HCL 2 MG CAPSULE PO PRN (17:07)
[2024-05-10] MEDS ORDERED: BENZONATATE 200 MG CAPSULE PO PRN (17:07)
[2024-05-10] MEDS ORDERED: IBUPROFEN 600 MG TABLET (FP) PO PRN (17:07)
[2024-05-10] MEDS ORDERED: IBUPROFEN 400 MG TABLET (FP) PO PRN (17:07)
[2024-05-10] MEDS ORDERED: NALOXONE (NARCAN) HCL 4 MG/0.1 ML SPRAY NS PRN (17:07)
[2024-05-10] MEDS ORDERED: ACETAMINOPHEN 325 MG TABLET (FP) PO PRN (17:07)
[2024-05-10] MEDS ORDERED: guaiFENesin 600 MG TABLET.ER (FP) PO PRN (17:07)
[2024-05-10] MEDS ORDERED: DICYCLOMINE HCL 10 MG CAPSULE PO PRN (17:07)
[2024-05-10] MEDS: MELATONIN 5 MG TABLETS PO SCH (20:21)
[2024-05-10] MEDS: chlordiazePOXIDE HCL 25 MG CAPSULE PO SCH (22:21)
[2024-05-10] MEDS: THIAMINE 100 MG TABLET PO SCH (22:21)
[2024-05-11] MEDS: PRENATAL VITAMINS W/ FOLIC ACID TABLET (FP) PO SCH (10:15)
[2024-05-11 10:26] LABS: CHLORIDE 108 mmol/L (98-107); POTASSIUM 4.4 mmol/L (3.5-5.1); SODIUM 139 mmol/L (136-145)
[2024-05-11 10:30] LABS: ALBUMIN 3.2 g/dl (3.4-5.0); ANION GAP 4 mmol/L (4-13); BLOOD UREA NITROGEN 9.4 mg/dL (7-18); CALCIUM 8.5 mg/dL (8.5-10.1); CO2 27 mmol/L (21-32); GLUCOSE,RANDOM 94 mg/dL (74-106)
[2024-05-11 10:32] LABS: SGOT/AST 26 U/L (15-37); SGPT/ALT 35 U/L (13-61)
[2024-05-11 10:34] LABS: CREATININE 0.9 mg/dL (0.55-1.3); HEMATOCRIT 40.1 % (35.4-49); HEMOGLOBIN 13.5 GM/dL (11.7-16.9); MCH 31.8 pg (25.7-33.7); MCHC 33.8 g/dl (32.0-35.9); MEAN CELL VOLUME 94.2 fl (80-96); MEAN PLT VOLUME 8.1 fl (7.5-11.1); PLATELET COUNT 231 10^3/uL (134-434); RBC 4.25 M/mm3 (4.00-5.60); RDW 15.8 % (11.9-15.9); WHITE BLOOD COUNT 6.2 K/mm3 (4.0-10.0)
[2024-05-11 10:35] LABS: BILIRUBIN,TOTAL 0.8 mg/dL (0.2-1); TOT PROT 6.7 g/dl (6.4-8.2)
[2024-05-11 10:36] LABS: ALK PHOS 84 U/L (45-117)
[2024-05-11 12:46] VITALS: RESP 18
[2024-05-11 16:48] VITALS: BP 102/54; PULSE 74; TEMP 98.1
[2024-05-12] MEDS ORDERED: chlordiazePOXIDE HCL 25 MG CAPSULE PO SCH (05:00)
[2024-05-13] MEDS ORDERED: chlordiazePOXIDE HCL 10 MG CAPSULE PO PRN
[2024-05-13] MEDS ORDERED: chlordiazePOXIDE HCL 10 MG CAPSULE PO SCH (05:00)
[2024-05-14] MEDS ORDERED: chlordiazePOXIDE HCL 10 MG CAPSULE PO SCH (05:00)
[2024-05-15] MEDS ORDERED: chlordiazePOXIDE HCL 10 MG CAPSULE PO ONE (05:00)
== END 2024-05-11 17:02 | DRG 774 ==
LOC: YASAS 12:04 → Y6N 16:41
PROVIDERS: ADMIT Surgery; ATTEND Surgery
PROC: HZ2ZZZZ Detoxification Services for Substance Abuse Treatment (ICD-10-PCS; principal; 2024-05-10)
DX: F10.230 Alcohol dependence with withdrawal, uncomplicated (principal); F14.20 Cocaine dependence, uncomplicated; F17.210 Nicotine dependence, cigarettes, uncomplicated; F25.9 Schizoaffective disorder, unspecified; F42.9 Obsessive-compulsive disorder, unspecified; I83.93 Asymptomatic varicose veins of bilateral lower extremities
CPT/HCPCS: 36415; 80053; 80305; 80307; 85027; 86780; 93005; 93010

== ENCOUNTER 2024-06-09 16:25 | Inpatient (IN) | payer OTHER ==
[2024-06-09 18:25] VITALS: BMI 32.1
[2024-06-09] MEDS ORDERED: IBUPROFEN 600 MG TABLET (FP) PO PRN (18:48)
[2024-06-09] MEDS ORDERED: NICOTINE POLACRILEX 2 MG LOZENGE BC PRN (18:48)
[2024-06-09] MEDS ORDERED: MAGNESIUM HYDROX 2400MG/30ML ORAL SUSPENSION 30 ML CUP PO PRN (18:48)
[2024-06-09] MEDS ORDERED: IBUPROFEN 400 MG TABLET (FP) PO PRN (18:48)
[2024-06-09] MEDS ORDERED: guaiFENesin 600 MG TABLET.ER (FP) PO PRN (18:48)
[2024-06-09] MEDS ORDERED: POLYETHYLENE GLYCOL (HEALTHYLAX) 3350 17 GM PACKET PO PRN (18:48)
[2024-06-09] MEDS ORDERED: ACETAMINOPHEN 325 MG TABLET (FP) PO PRN (18:48)
[2024-06-09] MEDS ORDERED: BENZONATATE 200 MG CAPSULE PO PRN (18:48)
[2024-06-09] MEDS ORDERED: DICYCLOMINE HCL 10 MG CAPSULE PO PRN (18:48)
[2024-06-09] MEDS ORDERED: MAG HYDROX/AL HYDROX/SIMETH 30 ML UNIT-DOSE CUP PO PRN (18:48)
[2024-06-09] MEDS ORDERED: BENZOCAINE/MENTHOL (CHLORASEPTIC ) LOZENGE MM PRN (18:48)
[2024-06-09] MEDS ORDERED: P-EPHED 60MG/TRIPROLIDI 2.5MG TABLET PO PRN (18:48)
[2024-06-09] MEDS: MELATONIN 5 MG TABLETS PO SCH (22:36)
[2024-06-09] MEDS: THIAMINE 100 MG TABLET PO SCH (22:36)
[2024-06-10] MEDS: ONDANSETRON *ODT* 4 MG TABLET SL PRN (09:31)
[2024-06-10] MEDS: hydrOXYzine PAMOATE 25 MG CAPSULE (FP) PO PRN (10:29)
[2024-06-10] MEDS: diazePAM 5 MG TABLET PO SCH (10:29)
[2024-06-10] MEDS: METHOCARBAMOL 500 MG TABLET PO PRN (10:29)
[2024-06-10] MEDS: PRENATAL VITAMINS W/ FOLIC ACID TABLET (FP) PO SCH (10:29)
[2024-06-10] MEDS: NICOTINE POLACRILEX 2 MG GUM BUC PRN (10:31)
[2024-06-11] MEDS: LOPERAMIDE HCL 2 MG CAPSULE PO PRN (18:12)
[2024-06-12] MEDS: diazePAM 5 MG TABLET PO SCH (06:37)
[2024-06-12] MEDS: diazePAM 5 MG TABLET PO PRN (10:09)
[2024-06-12] MEDS: TRIMETHOBENZAMIDE HCL 200MG/2ML INJ IM PRN (10:10)
[2024-06-12 20:39] VITALS: RESP 16
[2024-06-12] MEDS: BISMUTH SUBSALICYLATE 524 MG/30 ML PO PRN (21:52)
[2024-06-13] MEDS: diazePAM 5 MG TABLET PO SCH (06:18)
[2024-06-13 09:10] VITALS: BP 120/91; PULSE 91; TEMP 97.8
[2024-06-13] MEDS: NALOXONE (NYS OPIOID OVERDOSE PROGRAM) 4 MG/0.1 ML SPRAY NS SCH (11:28)
[2024-06-14] MEDS ORDERED: diazePAM 5 MG TABLET PO ONE (06:00)
== END 2024-06-13 11:17 | disposition home or self-care (01) | DRG 774 ==
LOC: YASAS 16:25 → Y6N 19:41
PROVIDERS: ADMIT Allergy & Immunology; ATTEND Surgery
PROC: HZ2ZZZZ Detoxification Services for Substance Abuse Treatment (ICD-10-PCS; principal; 2024-06-09)
DX: F10.230 Alcohol dependence with withdrawal, uncomplicated (principal); F14.20 Cocaine dependence, uncomplicated; F17.210 Nicotine dependence, cigarettes, uncomplicated; F25.9 Schizoaffective disorder, unspecified; J45.40 Moderate persistent asthma, uncomplicated; E11.9 Type 2 diabetes mellitus without complications; Z62.810 Personal history of physical and sexual abuse in childhood
CPT/HCPCS: 36415; 86780; Q0162

== ENCOUNTER 2024-08-23 14:26 | Inpatient (IN) | payer OTHER ==
[2024-08-23 17:28] VITALS: BMI 34.4
[2024-08-23] MEDS ORDERED: BENZOCAINE/MENTHOL (CHLORASEPTIC ) LOZENGE MM PRN (18:08)
[2024-08-23] MEDS ORDERED: DICYCLOMINE HCL 10 MG CAPSULE PO PRN (18:08)
[2024-08-23] MEDS ORDERED: NALOXONE (NARCAN) HCL 4 MG/0.1 ML SPRAY NS PRN (18:08)
[2024-08-23] MEDS ORDERED: ACETAMINOPHEN 325 MG TABLET (FP) PO PRN (18:08)
[2024-08-23] MEDS ORDERED: P-EPHED 60MG/TRIPROLIDI 2.5MG TABLET PO PRN (18:08)
[2024-08-23] MEDS ORDERED: IBUPROFEN 600 MG TABLET (FP) PO PRN (18:08)
[2024-08-23] MEDS ORDERED: guaiFENesin 600 MG TABLET.ER (FP) PO PRN (18:08)
[2024-08-23] MEDS ORDERED: ONDANSETRON *ODT* 4 MG TABLET SL PRN (18:08)
[2024-08-23] MEDS ORDERED: hydrOXYzine PAMOATE 25 MG CAPSULE (FP) PO PRN (18:08)
[2024-08-23] MEDS ORDERED: LOPERAMIDE HCL 2 MG CAPSULE PO PRN (18:08)
[2024-08-23] MEDS ORDERED: NICOTINE POLACRILEX 2 MG GUM BUC PRN (18:08)
[2024-08-23] MEDS ORDERED: MAGNESIUM HYDROX 2400MG/30ML ORAL SUSPENSION 30 ML CUP PO PRN (18:08)
[2024-08-23] MEDS ORDERED: BENZONATATE 200 MG CAPSULE PO PRN (18:08)
[2024-08-23] MEDS ORDERED: IBUPROFEN 400 MG TABLET (FP) PO PRN (18:08)
[2024-08-23] MEDS ORDERED: NICOTINE POLACRILEX 2 MG LOZENGE BC PRN (18:08)
[2024-08-23] MEDS ORDERED: POLYETHYLENE GLYCOL (HEALTHYLAX) 3350 17 GM PACKET PO PRN (18:08)
[2024-08-23] MEDS: THIAMINE 100 MG TABLET PO SCH (22:11)
[2024-08-23] MEDS: MELATONIN 5 MG TABLETS PO SCH (22:11)
[2024-08-24] MEDS: PRENATAL VITAMINS W/ FOLIC ACID TABLET (FP) PO SCH (09:16)
[2024-08-24] MEDS: METHOCARBAMOL 500 MG TABLET PO PRN (22:37)
[2024-08-25 21:40] VITALS: TEMP 97.7
[2024-08-26 05:59] VITALS: BP 120/61; PULSE 90; RESP 16
[2024-08-26] MEDS: BISMUTH SUBSALICYLATE 524 MG/30 ML PO PRN (07:09)
[2024-08-26] MEDS: MAG HYDROX/AL HYDROX/SIMETH 30 ML UNIT-DOSE CUP PO PRN (08:30)
== END 2024-08-26 08:46 | disposition home or self-care (01) | DRG 774 ==
LOC: YASAS 14:26 → Y6N 18:51
PROVIDERS: ADMIT Allergy & Immunology; ATTEND Allergy & Immunology
PROC: HZ2ZZZZ Detoxification Services for Substance Abuse Treatment (ICD-10-PCS; principal; 2024-08-23)
DX: F10.20 Alcohol dependence, uncomplicated (principal); F14.20 Cocaine dependence, uncomplicated; F17.210 Nicotine dependence, cigarettes, uncomplicated; F25.9 Schizoaffective disorder, unspecified; F31.9 Bipolar disorder, unspecified; F15.20 Other stimulant dependence, uncomplicated; E11.9 Type 2 diabetes mellitus without complications; J45.909 Unspecified asthma, uncomplicated
CPT/HCPCS: 80305; 80307

== ENCOUNTER 2024-11-07 15:34 | Inpatient (IN) | payer OTHER ==
[2024-11-07 16:33] VITALS: BMI 31.1
[2024-11-07] MEDS ORDERED: METHOCARBAMOL 500 MG TABLET PO PRN (17:50)
[2024-11-07] MEDS ORDERED: POLYETHYLENE GLYCOL (HEALTHYLAX) 3350 17 GM PACKET PO PRN (17:50)
[2024-11-07] MEDS ORDERED: MAG HYDROX/AL HYDROX/SIMETH 30 ML UNIT-DOSE CUP PO PRN (17:50)
[2024-11-07] MEDS ORDERED: BISMUTH SUBSALICYLATE 524 MG/30 ML PO PRN (17:50)
[2024-11-07] MEDS ORDERED: hydrOXYzine PAMOATE 25 MG CAPSULE (FP) PO PRN (17:50)
[2024-11-07] MEDS ORDERED: IBUPROFEN 400 MG TABLET (FP) PO PRN (17:50)
[2024-11-07] MEDS ORDERED: ONDANSETRON *ODT* 4 MG TABLET SL PRN (17:50)
[2024-11-07] MEDS ORDERED: NALOXONE (NARCAN) HCL 4 MG/0.1 ML SPRAY NS PRN (17:50)
[2024-11-07] MEDS ORDERED: chlordiazePOXIDE HCL 25 MG CAPSULE PO PRN (17:50)
[2024-11-07] MEDS ORDERED: guaiFENesin 600 MG TABLET.ER (FP) PO PRN (17:50)
[2024-11-07] MEDS ORDERED: LOPERAMIDE HCL 2 MG CAPSULE PO PRN (17:50)
[2024-11-07] MEDS ORDERED: DICYCLOMINE HCL 10 MG CAPSULE PO PRN (17:50)
[2024-11-07] MEDS ORDERED: MAGNESIUM HYDROX 2400MG/30ML ORAL SUSPENSION 30 ML CUP PO PRN (17:50)
[2024-11-07] MEDS ORDERED: ACETAMINOPHEN 325 MG TABLET (FP) PO PRN (17:50)
[2024-11-07] MEDS: BENZONATATE 200 MG CAPSULE PO PRN (21:50)
[2024-11-07] MEDS: THIAMINE 100 MG TABLET PO SCH (22:20)
[2024-11-07] MEDS: MELATONIN 5 MG TABLETS PO SCH (22:20)
[2024-11-07] MEDS: chlordiazePOXIDE HCL 25 MG CAPSULE PO SCH (22:21)
[2024-11-07] MEDS: CLOTRIMAZOLE 1% CREAM TP SCH (23:36)
[2024-11-08] MEDS: BENZOCAINE/MENTHOL (CHLORASEPTIC ) LOZENGE MM PRN (06:26)
[2024-11-08] MEDS: PRENATAL VITAMINS W/ FOLIC ACID TABLET (FP) PO SCH (09:36)
[2024-11-08] MEDS: NICOTINE POLACRILEX 2 MG LOZENGE BC PRN (09:40)
[2024-11-08] MEDS ORDERED: NICOTINE POLACRILEX 2 MG GUM BUC PRN (09:46)
[2024-11-08] MEDS: IBUPROFEN 600 MG TABLET (FP) PO PRN (11:11)
[2024-11-08 11:25] LABS: HEMATOCRIT 41.2 % (40.1-51.0); HEMOGLOBIN 13.8 g/dL (13.7-17.5); MCHC 33.5 g/dl (32.3-36.5); MEAN CELL VOLUME 94.7 fl (79.0-92.2); MEAN PLT VOLUME 10.1 fl (9.4-12.4); PLATELET COUNT 242 x10^3/uL (163-337); RDW 13.8 % (12.1-15.9)
[2024-11-08 11:26] LABS: CHLORIDE 111 mmol/L (98-107); POTASSIUM 4.4 mmol/L (3.5-5.1); SODIUM 142 mmol/L (136-145)
[2024-11-08 11:41] LABS: ANION GAP 5 mmol/L (4-13); CALCIUM 8.9 mg/dL (8.5-10.1); CO2 25 mmol/L (21-32)
[2024-11-08 11:42] LABS: BLOOD UREA NITROGEN 15.9 mg/dL (7-18); GLUCOSE,RANDOM 90 mg/dL (74-106)
[2024-11-08 11:45] LABS: SGOT/AST 23 U/L (15-37)
[2024-11-08 11:46] LABS: BILIRUBIN,TOTAL 0.3 mg/dL (0.2-1); SGPT/ALT 36 U/L (13-61); TOT PROT 6.4 g/dl (6.4-8.2)
[2024-11-08 11:47] LABS: ALK PHOS 84 U/L (45-117)
[2024-11-08 12:09] LABS: ALBUMIN 3.2 g/dl (3.4-5.0)
[2024-11-09] MEDS: chlordiazePOXIDE HCL 25 MG CAPSULE PO SCH (05:52)
[2024-11-09 07:01] VITALS: BP 119/71; PULSE 78; RESP 17; TEMP 97.7
[2024-11-10] MEDS ORDERED: chlordiazePOXIDE HCL 10 MG CAPSULE PO PRN
[2024-11-10] MEDS ORDERED: chlordiazePOXIDE HCL 10 MG CAPSULE PO SCH (05:00)
[2024-11-11] MEDS ORDERED: chlordiazePOXIDE HCL 10 MG CAPSULE PO SCH (05:00)
[2024-11-12] MEDS ORDERED: chlordiazePOXIDE HCL 10 MG CAPSULE PO ONE (05:00)
== END 2024-11-09 06:40 | disposition left against medical advice (07) | DRG 770 ==
LOC: YASAS 15:34 → Y6N 19:13
PROVIDERS: ADMIT Allergy & Immunology; ATTEND Allergy & Immunology
PROC: HZ2ZZZZ Detoxification Services for Substance Abuse Treatment (ICD-10-PCS; principal; 2024-11-07)
DX: F10.230 Alcohol dependence with withdrawal, uncomplicated (principal); F14.20 Cocaine dependence, uncomplicated; F15.20 Other stimulant dependence, uncomplicated; F17.210 Nicotine dependence, cigarettes, uncomplicated; F20.9 Schizophrenia, unspecified; F31.9 Bipolar disorder, unspecified; F29 Unspecified psychosis not due to a substance or known physiological condition; E11.9 Type 2 diabetes mellitus without complications; J45.909 Unspecified asthma, uncomplicated
CPT/HCPCS: 36415; 80053; 80305; 80307; 85027; 86780; 93005; 93010

== ENCOUNTER 2025-01-28 18:08 | Inpatient (IN) | payer OTHER ==
[2025-01-28 18:19] VITALS: BMI 32.5
[2025-01-28] MEDS ORDERED: NALOXONE (NARCAN) HCL 4 MG/0.1 ML SPRAY NS PRN (18:47)
[2025-01-28] MEDS ORDERED: BISMUTH SUBSALICYLATE 524 MG/30 ML PO PRN (18:47)
[2025-01-28] MEDS ORDERED: NICOTINE POLACRILEX 2 MG LOZENGE BC PRN (18:47)
[2025-01-28] MEDS ORDERED: BENZONATATE 200 MG CAPSULE PO PRN (18:47)
[2025-01-28] MEDS ORDERED: POLYETHYLENE GLYCOL (HEALTHYLAX) 3350 17 GM PACKET PO PRN (18:47)
[2025-01-28] MEDS ORDERED: IBUPROFEN 400 MG TABLET (FP) PO PRN (18:47)
[2025-01-28] MEDS ORDERED: DICYCLOMINE HCL 10 MG CAPSULE PO PRN (18:47)
[2025-01-28] MEDS ORDERED: guaiFENesin 600 MG TABLET.ER (FP) PO PRN (18:47)
[2025-01-28] MEDS ORDERED: LOPERAMIDE HCL 2 MG CAPSULE PO PRN (18:47)
[2025-01-28] MEDS ORDERED: IBUPROFEN 600 MG TABLET (FP) PO PRN (18:47)
[2025-01-28] MEDS ORDERED: MAG HYDROX/AL HYDROX/SIMETH 30 ML UNIT-DOSE CUP PO PRN (18:47)
[2025-01-28] MEDS ORDERED: MAGNESIUM HYDROX 2400MG/30ML ORAL SUSPENSION 30 ML CUP PO PRN (18:47)
[2025-01-28] MEDS: MELATONIN 5 MG TABLETS PO SCH (22:20)
[2025-01-28] MEDS: THIAMINE 100 MG TABLET PO SCH (22:20)
[2025-01-29] MEDS: NICOTINE POLACRILEX 2 MG GUM BUC PRN (05:41)
[2025-01-29] MEDS: ONDANSETRON *ODT* 4 MG TABLET SL PRN (09:36)
[2025-01-29 10:02] LABS: MCHC 33.2 g/dl (32.3-36.5); MEAN CELL VOLUME 96.5 fl (79.0-92.2); MEAN PLT VOLUME 9.9 fl (9.4-12.4); RDW 14.8 % (12.1-15.9)
[2025-01-29] MEDS: PRENATAL VITAMINS W/ FOLIC ACID TABLET (FP) PO SCH (10:11)
[2025-01-29 11:03] LABS: CO2 28 mmol/L (21-32); GLUCOSE,RANDOM 97 mg/dL (74-106)
[2025-01-29 11:06] LABS: SGPT/ALT 38 U/L (13-61)
[2025-01-29 11:07] LABS: CREATININE 1.0 mg/dL (0.55-1.3); SGOT/AST 19 U/L (15-37)
[2025-01-29 11:08] LABS: TOT PROT 5.6 g/dl (6.4-8.2)
[2025-01-29 11:09] LABS: ALK PHOS 78 U/L (45-117)
[2025-01-30] MEDS: hydrOXYzine PAMOATE 25 MG CAPSULE (FP) PO PRN (10:16)
[2025-01-30] MEDS: METHOCARBAMOL 500 MG TABLET PO PRN (10:16)
[2025-02-01] MEDS: BENZOCAINE/MENTHOL (CHLORASEPTIC ) LOZENGE MM PRN (10:14)
[2025-02-01] MEDS: ACETAMINOPHEN 325 MG TABLET (FP) PO PRN (10:14)
[2025-02-02 08:45] VITALS: BP 138/87; PULSE 71; RESP 17; TEMP 97.1
== END 2025-02-02 09:26 | disposition home or self-care (01) | DRG 774 ==
LOC: YASAS 18:08 → Y3N 20:01
PROVIDERS: ADMIT Neuromusculoskeletal Medicine & OMM; ATTEND Allergy & Immunology
PROC: HZ2ZZZZ Detoxification Services for Substance Abuse Treatment (ICD-10-PCS; principal; 2025-01-28)
PROC: HZ2ZZZZ Detoxification Services for Substance Abuse Treatment (ICD-10-PCS; 2025-01-28)
DX: F10.230 Alcohol dependence with withdrawal, uncomplicated (principal); F31.9 Bipolar disorder, unspecified; F20.9 Schizophrenia, unspecified; F17.210 Nicotine dependence, cigarettes, uncomplicated; F14.20 Cocaine dependence, uncomplicated; Z91.148 Patient's other noncompliance with medication regimen for other reason; E11.9 Type 2 diabetes mellitus without complications; J45.909 Unspecified asthma, uncomplicated
CPT/HCPCS: 36415; 80053; 80305; 80307; 85027; 86780; Q0162

== ENCOUNTER 2025-04-20 11:36 | Inpatient (IN) | payer OTHER ==
[2025-04-20 12:07] VITALS: BMI 29.2
[2025-04-20] MEDS ORDERED: BENZONATATE 200 MG CAPSULE PO PRN (13:10)
[2025-04-20] MEDS ORDERED: IBUPROFEN 400 MG TABLET (FP) PO PRN (13:10)
[2025-04-20] MEDS ORDERED: LOPERAMIDE HCL 2 MG CAPSULE PO PRN (13:10)
[2025-04-20] MEDS ORDERED: METHOCARBAMOL 500 MG TABLET PO PRN (13:10)
[2025-04-20] MEDS ORDERED: NALOXONE (NARCAN) HCL 4 MG/0.1 ML SPRAY NS PRN (13:10)
[2025-04-20] MEDS ORDERED: hydrOXYzine PAMOATE 25 MG CAPSULE (FP) PO PRN (13:10)
[2025-04-20] MEDS ORDERED: IBUPROFEN 600 MG TABLET (FP) PO PRN (13:10)
[2025-04-20] MEDS ORDERED: NICOTINE POLACRILEX 2 MG GUM BUC PRN (13:10)
[2025-04-20] MEDS ORDERED: ONDANSETRON *ODT* 4 MG TABLET SL PRN (13:10)
[2025-04-20] MEDS ORDERED: MAGNESIUM HYDROX 2400MG/30ML ORAL SUSPENSION 30 ML CUP PO PRN (13:10)
[2025-04-20] MEDS ORDERED: guaiFENesin 600 MG TABLET.ER (FP) PO PRN (13:10)
[2025-04-20] MEDS ORDERED: MAG HYDROX/AL HYDROX/SIMETH 30 ML UNIT-DOSE CUP PO PRN (13:10)
[2025-04-20] MEDS ORDERED: BENZOCAINE/MENTHOL (CHLORASEPTIC ) LOZENGE MM PRN (13:10)
[2025-04-20] MEDS ORDERED: POLYETHYLENE GLYCOL (HEALTHYLAX) 3350 17 GM PACKET PO PRN (13:10)
[2025-04-20] MEDS ORDERED: NALTREXONE HCL 50 MG TABLET PO ONE (13:10)
[2025-04-20] MEDS ORDERED: DICYCLOMINE HCL 10 MG CAPSULE PO PRN (13:10)
[2025-04-20] MEDS ORDERED: BISMUTH SUBSALICYLATE 524 MG/30 ML PO PRN (13:10)
[2025-04-20] MEDS: ACETAMINOPHEN 325 MG TABLET (FP) PO PRN (16:34)
[2025-04-20] MEDS: NALTREXONE HCL 50 MG TABLET PO ONE (16:43)
[2025-04-20] MEDS: MELATONIN 5 MG TABLETS PO SCH (22:35)
[2025-04-20] MEDS: THIAMINE 100 MG TABLET PO SCH (22:35)
[2025-04-21 09:34] VITALS: BP 129/87; PULSE 85; RESP 18; TEMP 97.8
[2025-04-21] MEDS: PRENATAL VITAMINS W/ FOLIC ACID TABLET (FP) PO SCH (10:17)
[2025-04-21] MEDS: NALTREXONE HCL 50 MG TABLET PO SCH (10:17)
[2025-04-21 12:32] LABS: MCHC 32.7 g/dl (32.3-36.5); MEAN CELL VOLUME 96.4 fl (79.0-92.2); MEAN PLT VOLUME 10.1 fl (9.4-12.4); RDW 13.5 % (12.1-15.9)
[2025-04-21 12:39] LABS: GLUCOSE,RANDOM 90.0 mg/dL (74-106)
[2025-04-21 12:40] LABS: CO2 27.0 mmol/L (21-32); TOT PROT 7.8 g/dl (6.4-8.2)
[2025-04-21 12:42] LABS: ALK PHOS 79.0 U/L (40-150)
[2025-04-21 12:45] LABS: CREATININE 0.96 mg/dL (0.55-1.3); SGOT/AST 37.0 U/L (5-34); SGPT/ALT 29.0 U/L (0-55)
== END 2025-04-21 10:18 | disposition left against medical advice (07) | DRG 770 ==
LOC: SUATTDRO 11:36 → YASAS 11:36 → Y3N 15:52
PROVIDERS: ADMIT Family Medicine; ATTEND Allergy & Immunology
PROC: HZ2ZZZZ Detoxification Services for Substance Abuse Treatment (ICD-10-PCS; principal; 2025-04-20)
DX: F10.230 Alcohol dependence with withdrawal, uncomplicated (principal); F14.20 Cocaine dependence, uncomplicated; F17.210 Nicotine dependence, cigarettes, uncomplicated; F25.9 Schizoaffective disorder, unspecified
CPT/HCPCS: 36415; 80053; 80307; 85027; 86780; 93005; 93010